=== PATIENT | female | born 1995 | race Two or more races ===

== ENCOUNTER 2017-02-13 18:36 | Emergency (ER) | payer MEDICAID ==
[~2017-02-13] VITALS: Ht 149.9 cm; Wt 60.6 kg
[2017-02-13 18:55] VITALS: BP 116/78
== END 2017-02-13 19:35 | disposition home or self-care (01) ==
LOC: ED 19:27
DX: A60.00 Herpesviral infection of urogenital system, unspecified (principal)
CPT/HCPCS: 99283

== ENCOUNTER 2017-07-01 03:31 | Emergency (ER) | payer MEDICAID ==
[~2017-07-01] VITALS: Ht 149.9 cm; Wt 57.4 kg
[2017-07-01 03:33] VITALS: BP 134/78
[2017-07-01] MEDS ORDERED: ONDANSETRON ODT 4 MG PO ONE (04:00)
[2017-07-01] MEDS ORDERED: IBUPROFEN 200 MG TABLET PO ONE (04:00)
[2017-07-01] MEDS ORDERED: IBUPROFEN 200 MG TABLET ONE (04:01)
[2017-07-01] MEDS ORDERED: ONDANSETRON ODT 4 MG ONE (04:04)
== END 2017-07-01 04:26 | disposition home or self-care (01) ==
LOC: ED 04:20
DX: J02.0 Streptococcal pharyngitis (principal)
CPT/HCPCS: 99283; Q0162

== ENCOUNTER 2017-07-06 05:24 | Emergency (ER) | payer MEDICAID ==
[~2017-07-06] VITALS: Ht 152.4 cm; Wt 57.1 kg
[2017-07-06] MEDS ORDERED: AZITHROMYCIN 500 MG TABLET PO ONE (06:00)
[2017-07-06] MEDS ORDERED: CEFTRIAXONE 250 MG IM ONE (06:00)
[2017-07-06] MEDS ORDERED: CEFTRIAXONE 250 MG ONE (06:15)
[2017-07-06 06:16] LABS: HCG UR LOT HCG7030192
[2017-07-06] MEDS ORDERED: AZITHROMYCIN 250 MG TABLET ONE (06:16)
[2017-07-06 06:26] LABS: HCG UR OBC PASS
[2017-07-06 07:37] VITALS: BP 120/76
== END 2017-07-06 07:39 | disposition home or self-care (01) ==
LOC: ED 05:48
DX: N39.0 Urinary tract infection, site not specified (principal); A60.00 Herpesviral infection of urogenital system, unspecified; R30.0 Dysuria; N72 Inflammatory disease of cervix uteri
CPT/HCPCS: 81001; 81025; 87077; 87086; 87186; 87210; 87491; 87591; 87808; 96372; 99284; J0696

== ENCOUNTER 2017-11-23 18:28 | Emergency (ER) | payer MEDICAID ==
[~2017-11-23] VITALS: Ht 149.9 cm; Wt 55.8 kg
[2017-11-23 18:30] VITALS: BP 113/71
== END 2017-11-23 19:36 | disposition left against medical advice (07) ==
LOC: ED 19:00
DX: O21.9 Vomiting of pregnancy, unspecified (principal); Z32.01 Encounter for pregnancy test, result positive
CPT/HCPCS: 99281

== ENCOUNTER 2018-05-08 09:49 | Outpatient (CLI) | payer MEDICAID ==
[~2018-05-08] VITALS: Ht 149.9 cm; Wt 68.2 kg
[2018-05-08 10:51] VITALS: BP 110/61
[2018-05-08 10:58] LABS: MICROSCOPIC INDICATED
[2018-05-08 12:19] LABS: AMPHETAMINE SCREEN, URINE Negative (Negative); BARBITURATE SCREEN, URINE Negative (Negative); BENZODIAZEPINE SCREEN, URINE Negative (Negative); CANNABINOID SCREEN, URINE Positive (Negative); COCAINE SCREEN, URINE Negative (Negative); METHADONE SCREEN, URINE Negative (Negative); OPIATE SCREEN, URINE Negative (Negative)
== END 2018-05-08 11:45 | disposition home or self-care (01) ==
LOC: LDOP 09:49
PROVIDERS: ATTEND Student in an Organized Health Care Education/Training Program
DX: O32.1XX0 Maternal care for breech presentation, not applicable or unspecified (principal); O42.913 Preterm premature rupture of membranes, unspecified as to length of time between rupture and onset of labor, third trimester; O26.893 Other specified pregnancy related conditions, third trimester; Z3A.29 29 weeks gestation of pregnancy
CPT/HCPCS: 59025; 76815; 80307; 81001; 84112; 87086; 99201; G0463

== ENCOUNTER 2019-02-02 14:37 | Emergency (ER) | payer MEDICAID ==
[~2019-02-02] VITALS: Ht 149.9 cm; Wt 64.1 kg
[2019-02-02 14:38] VITALS: BP 129/79
--- NOTE | 2019-02-02 14:58 | NUR ---
Pt presents for VB x 3 days, c clots. Pt also c/o dizziness lightheaded and room spinning.
[2019-02-02 15:10] LABS: BASOPHILS # (AUTO) 0.03 x10^3/uL (0-0.1); BASOPHILS % (AUTO) 0 % (0-1); EOSINOPHILS # (AUTO) 0.09 x10^3/uL (0-0.4); EOSINOPHILS % (AUTO) 1 % (1-7); LYMPHOCYTES # (AUTO) 1.88 x10^3/uL (1-3.4); LYMPHOCYTES % (AUTO) 26 % (22-44); MD NO; MEAN CORPUSCULAR HEMOGLOBIN 27.6 pg (27.0-34.8); MEAN CORPUSCULAR HGB CONC 32.5 g/dL (32.4-35.8); MEAN CORPUSCULAR VOLUME 84.9 fL (80-100); MEAN PLATELET VOLUME 7.8 fL (7.4-10.4); MONOCYTES # (AUTO) 0.42 x10^3/uL (0.2-0.8); MONOCYTES % (AUTO) 6 % (2-9); NEUTROPHILS % (AUTO) 66 % (42-75); PLATELET COUNT 430 x10^3/uL (130-400); RED BLOOD COUNT 4.48 x10^6/uL (3.82-5.3); RED CELL DISTRIBUTION WIDTH 16.1 % (9.6-15.2)
[2019-02-02 15:17] LABS: ALANINE AMINOTRANSFERASE 22 U/L (12-78); ALBUMIN 4.1 g/dL (3.4-5.0); ANION GAP 5 mmol/L (5-15); CHLORIDE 109 mmol/L (98-107); CREATININE 0.75 mg/dL (0.55-1.02)
[2019-02-02 15:22] LABS: ALKALINE PHOSPHATASE 96 U/L (45-117); TOTAL PROTEIN 7.9 g/dL (6.4-8.2)
== END 2019-02-02 17:03 | disposition home or self-care (01) ==
LOC: ED 15:54
DX: N94.6 Dysmenorrhea, unspecified (principal); R10.2 Pelvic and perineal pain
CPT/HCPCS: 36415; 76830; 80053; 84703; 85025; 99284

== ENCOUNTER 2020-02-29 15:52 | Emergency (ER) | payer MEDICAID ==
[2020-02-29 15:59] VITALS: BP 104/70
== END 2020-02-29 16:56 | disposition home or self-care (01) ==
LOC: ED 16:45
DX: R50.9 Fever, unspecified (principal); Z20.828 Contact with and (suspected) exposure to other viral communicable diseases; R11.0 Nausea; R53.83 Other fatigue; M79.10 Myalgia, unspecified site
CPT/HCPCS: 36415; 87635; 99283